=== PATIENT | female | born 1970 | race Caucasian/White ===

== ENCOUNTER 2018-01-21 20:26 | Inpatient (IN) | payer OTHER ==
[~2018-01-21] VITALS: Ht 172.7 cm; Wt 76.2 kg
[2018-01-21 20:34] VITALS: BP 177/105
--- NOTE | 2018-01-21 20:34 | NUR ---
PT JESUS ALBERTO TO ED BED 12. REPORT TO YURI VALENZUELA
--- NOTE | 2018-01-21 20:40 | NUR ---
PATIENT IS A 47 Y/O FEMALE WHO PRESENTS TO THE ED C/O ABD PAIN. PT REPORTS 8/10 ACHING LLQ ABD PAIN THAT DOES NOT RADIATE. PT DENIES CP, SOB, N/V/D. REPORTS TAKING MOTRIN WITH NO RELIEF. PT AWAKE AND ALERT, RR EVEN/UNLABORED. PT REPOSITIONED FOR COMFORT, BED IN LOWEST POSITION. BETTINA KU NOTIFIED. WILL CONTINUE TO MONITOR. Addendum: 01/21/18 at 2057 by [email or web address] PATIENT IS A 47 Y/O FEMALE WHO PRESENTS TO THE ED C/O ABD PAIN. PT REPORTS 8/10 ACHING LLQ ABD PAIN THAT DOES NOT RADIATE. PT DENIES CP, SOB, N/V/D. REPORTS TAKING MOTRIN WITH NO RELIEF. PT AWAKE, SLIGHTLY LETHARGIC, ABLE TO RESPOND TO COMMANDS, RR EVEN/UNLABORED. PT REPOSITIONED FOR COMFORT, BED IN LOWEST POSITION. ER MD DR. KU NOTIFIED. WILL CONTINUE TO MONITOR.
[2018-01-21] MEDS ORDERED: ACETAMINOPHEN EXTRA STRENGTH 500 MG TAB ONE (20:41)
[2018-01-21] MEDS ORDERED: ACETAMINOPHEN EXTRA STRENGTH 500 MG TAB PO ONE (20:45)
--- NOTE | 2018-01-21 21:05 | NUR ---
PATIENT UNABLE TO PROVIDE URINE AT THIS TIME. NO SIGNS OF DISTRESS.
--- NOTE | 2018-01-21 22:40 | NUR ---
EKG PERFORMED AT BEDSIDE, WITH PT COVERED IN GOWN
[2018-01-21 23:20] LABS: HEMATOCRIT 32.9 % (36-48); HEMOGLOBIN 10.8 g/dL (12.0-16.0); MEAN CORPUSCULAR HEMOGLOBIN 28 pg (27-31); MEAN CORPUSCULAR HGB CONC 33 g/dL (33-37); MEAN CORPUSCULAR VOLUME 84.7 fL (80-94); PLATELET COUNT (AUTO) 218 K/uL (140-450); RED BLOOD CELL COUNT(AUTO) 3.88 MIL/uL (4.20-5.40); RED CELL DISTRIBUTION WIDTH 14.9 % (11.6-13.7); WHITE BLOOD COUNT (AUTO) 19.4 K/uL (4.8-10.8)
[2018-01-21 23:28] LABS: APPEARANCE,URINE HAZY (CLEAR); BILIRUBIN,URINE NEGATIVE (NEGATIVE); BLOOD, URINE 1+ (NEGATIVE); COLOR,URINE YELLOW (YELLOW); LEUKOCYTE ESTERASE ,URINE 1+ (NEGATIVE); NITRITE, URINE NEGATIVE (NEGATIVE); PH,URINE 5.5 (5.0-9.0); UGLUCOSE NEGATIVE (NEGATIVE)
[2018-01-21] MEDS ORDERED: NACL 0.9% 2,000 ML IV ONE (23:35)
[2018-01-21] MEDS ORDERED: LEVOFLOXACIN 750 MG/D5W PREMIX 150 ML IV ONE (23:35)
[2018-01-21 23:36] LABS: BARBITURATE, URINE NEG. ng/ml (NEG <=200); BENZODIAZEPINE, URINE NEG. ng/mL (NEG <=200); CANNABINOID, URINE POS. ng/mL (NEG <=50); COCAINE, URINE NEG. ng/mL (NEG <=300); OPIATE, URINE NEG. ng/mL (NEG <=2000); PHENCYCLIDINE SCREEN,URINE NEG. ng/mL (NEG <=25)
[2018-01-21 23:36] LABS: ANION GAP 10.3 (8-16); CARBON DIOXIDE 27.7 mmol/L (21-32); CREATININE 0.9 mg/dL (0.6-1.3)
[2018-01-21 23:40] LABS: RBC,URINE 0-5 (RARE) /HPF (0-5); WBC,URINE TOO MANY TO COUNT /HPF (0-5)
[2018-01-21 23:42] LABS: TOTAL BILIRUBIN 0.4 mg/dL (0.0-1.0)
[2018-01-21 23:46] LABS: LYMPHOCYTES % (MANUAL) 8 % (20-46); MONOCYTES % (MANUAL) 2 % (5-12)
--- NOTE | 2018-01-22 00:10 | NUR ---
PATIENT RESTING AT THIS TIME. NO SIGNS OF DISTRESS.
[2018-01-22] MEDS ORDERED: NACL 0.9% 1,000 ML IV SCH (00:29)
[2018-01-22] MEDS ORDERED: ONDANSETRON 4 MG/2 ML VIAL IVP PRN (00:30)
[2018-01-22] MEDS ORDERED: MORPHINE SULFATE 4 MG/ML SYR IVP PRN (00:30)
[2018-01-22] MEDS ORDERED: DEXT 5% / NACL 0.9% 500 ML IV ONE (00:40)
--- NOTE | 2018-01-22 01:31 | NUR ---
Patient will be admitted to care of DR. CUI. Admited to TELE. Will go to room 106A. Belongings list completed. Report to RUTH ANN VALENZUELA.
[2018-01-22 01:45] VITALS: BP 139/72
--- NOTE | 2018-01-22 01:45 | NUR ---
RECEIVED PT FROM ER NURSE. PT ARRIVED VIA GURNEY, AMBULATORY WITH ASSISTANCE DUE TO GENERALIZED WEAKNESS. PT WAS ASSISTED TO USE THE TOILET BY NUCLEAR OPERATOR CAROLINE. PT DROWSY, LETHARGIC AND UNCOOPERATIVE. AOX2 DUE TO DROWSINESS/LETHARGY, ON ROOM AIR, WITH IV ON RIGHT AC #20G AND LEFT HAND #22G INFUSING ANTIBIOTICS LEVAQUIN FROM ER. MRSA NARES COLLECTED. VITAL SIGNS TAKEN AND TOLERATED WELL. DISCUSSED PLAN OF CARE HOWEVER PT DID NOT RESPOND AND IS ASLEEP. DIFFICULT TO AROUSE- BY SHAKING IF NO RESPONSE BY VOICE. NO S/S OF RESPIRATORY DISTRESS OR DISCOMFORT NOTED AT THIS TIME. BED IN LOWEST POSITION, BED BREAKS ON, BOTH SIDE RAILS UP AND BED ALARMS ON DUE TO FALL PRECAUTIONS. BED SIDE TABLE AND CALL LIGHT ARE WITHIN REACH. PT DID NOT VERBALIZE UNDERSTANDING MEDIA LIAISON OFFICER LIGHT, BED, OR ROOM ORIENTATION-PT CONTINUES TO SLEEP. WILL CONTINUE TO MONITOR.
--- NOTE | 2018-01-22 02:05 | NUR ---
IVF BAG HUNG AND TOLERATED WELL. ALL PT LABELS IN PLACE. NO S/S OF RESPIRATORY DISTRESS. ANTIBIOTICS LEVAQUIN STILL INFUSING. WILL CONTINUE TO MONITOR
[2018-01-22 04:00] VITALS: BP 146/79
--- NOTE | 2018-01-22 04:00 | NUR ---
VITAL SIGNS TAKEN AND TOLERATED WELL. NO S/S OF RESPIRATORY DISTRESS OR DISCOMFORT NOTED AT THIS TIME. OPEN WOUND NOTED ON RIGHT ANKLE- WILL TAKE PICTURE AND DOCUMENT. WILL CONTINUE TO MONITOR.
--- NOTE | 2018-01-22 06:00 | NUR ---
PT SLEEPING IN BED. NO S/S OF RESPIRATORY DISTRESS OR DISCOMFORT NOTED AT THIS TIME. WILL CONTINUE TO MONITOR.
--- NOTE | 2018-01-22 07:24 | NUR ---
ENDORSED PT CARE TO DAY SHIFT NURSE FARNAZ-RN FOR CONTINUITY OF CARE.
--- NOTE | 2018-01-22 07:26 | NUR ---
RECEIVED REPORT FROM PRESSER MACHINE NURSE. PT SLEEPING COMFORTABLY IN BED. RESPIRATIONS EVEN & UNLABORED. SAFETY MEASURES IN PLACE. WILL CONTINUE TO MONITOR.
[2018-01-22 08:00] VITALS: BP 155/96
[2018-01-22] MEDS ORDERED: ENOXAPARIN 40 MG/0.4 ML SYR SUBQ SCH (09:00)
[2018-01-22] MEDS: ENOXAPARIN 40 MG/0.4 ML SYR SUBQ SCH (09:55)
--- NOTE | 2018-01-22 10:00 | NUR ---
PT SLEEPING SOUNDLY IN BED. AROUSABLE BY VOICE. NO SIGNS OF DISTRESS. DENIES ANY PAIN OR DISCOMFORT. RESPIRATIONS EVEN & UNLABORED. BED ALARM ACTIVATED. CALL LIGHT WITHIN REACH. WILL CONTINUE TO MONITOR.
--- NOTE | 2018-01-22 11:40 | NUR ---
ASSISTED PT TO THE TOILET. PT ABLE TO AMBULATE WITH UNSTEADY GAIT, STAND-BY ASSIST PROVIDED. VOIDED X1. ASSISTED BACK TO BED. SAFETY MEASURES IN PLACE. WILL CONTINUE TO MONITOR.
[2018-01-22 12:00] VITALS: BP 157/89
--- NOTE | 2018-01-22 13:15 | NUR ---
PT SLEEPING IN BED, AROUSABLE BY VOICE. VERBALLY RESPONSIVE, DENIES ANY PAIN OR DISCOMFORT. NO SIGNS OF DISTRESS. RESPIRATIONS EVEN & UNLABORED. CALL LIGHT WITHIN REACH. BED ALARM ACTIVATED. WILL CONTINUE TO MONITOR.
[2018-01-22 16:00] VITALS: BP 129/83
--- NOTE | 2018-01-22 16:23 | NUR ---
SMOKE CESSATION EDUCATION ATTEMPTED, PT REFUSES, HANDOUT GIVEN TO PATIENT. WILL TRY AT LATER TIME.
[2018-01-22] MEDS ORDERED: POTASSIUM CHLORIDE 10 MEQ TABER PO SCH (17:00)
--- NOTE | 2018-01-22 17:47 | NUR ---
PT SITTING UP IN BED, EATING FRUIT CUP, NO SIGNS OF DISTRESS, DENIES ANY PAIN OR DISCOMFORT. FALL RISK INTERVENTIONS IN PLACE. WILL CONTINUE TO MONITOR.
--- NOTE | 2018-01-22 19:10 | NUR ---
REPORT GIVEN TO TRAFFIC TECHNICIAN NURSE FOR CONTINUITY OF CARE. PT STABLE AT THIS TIME.
--- NOTE | 2018-01-22 19:11 | NUR ---
RECEIVED REPORT FROM DAY SHIFT NURSE FARNAZ-ER AT BEDSIDE. AOX4- DROWSY, ON ROOM AIR, WITH IV ON LEFT HAND #22G-SL. DISCUSSED PLAN OF CARE HOWEVER PT DID NOT RESPOND AND IS ASLEEP. DIFFICULT TO AROUSE- BY SHAKING IF NO RESPONSE BY VOICE. NO S/S OF RESPIRATORY DISTRESS OR DISCOMFORT NOTED AT THIS TIME. BED IN LOWEST POSITION, BED BREAKS ON, BOTH SIDE RAILS UP AND BED ALARMS ON DUE TO FALL PRECAUTIONS. BED SIDE TABLE AND CALL LIGHT ARE WITHIN REACH. WILL CONTINUE TO MONITOR.
[2018-01-22 20:00] VITALS: BP 141/91
--- NOTE | 2018-01-22 20:00 | NUR ---
VITAL SIGNS TAKEN AND TOLERATED WELL. NO S/S OF RESPIRATORY DISTRESS OR DISCOMFORT NOTED AT THIS TIME. WILL CONTINUE TO MONITOR.
[2018-01-22] MEDS ORDERED: LEVOFLOXACIN 750 MG/D5W PREMIX 150 ML IV SCH (21:00)
--- NOTE | 2018-01-22 21:10 | NUR ---
SCHEDULED MEDICATION LEVAQUIN GIVEN AND TOLERATED WELL. NO S/S OF RESPIRATORY DISTRESS OR DISCOMFORT NOTED AT THIS TIME. WILL CONTINUE TO MONITOR.
--- NOTE | 2018-01-22 22:00 | NUR ---
PT CONTINUES TO SLEEP. NO S/S OF RESPIRATORY DISTRESS OR DISCOMFORT NOTED AT THIS TIME. WILL CONTINUE TO MONITOR.
[2018-01-23] VITALS: BP 133/83
--- NOTE | 2018-01-23 | NUR ---
VITAL SIGNS TAKEN AND TOLERATED WELL. NO S/S OF RESPIRATORY DISTRESS OR DISCOMFORT NOTED AT THIS TIME. WILL CONTINUE TO MONITOR.
--- NOTE | 2018-01-23 02:00 | NUR ---
PT CONTINUES TO SLEEP. NO S/S OF RESPIRATORY DISTRESS OR DISCOMFORT NOTED AT THIS TIME. WILL CONTINUE TO MONITOR.
[2018-01-23 04:00] VITALS: BP 100/64
--- NOTE | 2018-01-23 04:00 | NUR ---
VITAL SIGNS TAKEN AND TOLERATED WELL. NO S/S OF RESPIRATORY DISTRESS OR DISCOMFORT NOTED AT THIS TIME. WILL CONTINUE TO MONITOR.
--- NOTE | 2018-01-23 06:00 | NUR ---
PT SLEEPING IN BED. NO S/S OF RESPIRATORY DISTRESS OR DISCOMFORT NOTED AT THIS TIME. WILL CONTINUE TO MONITOR.
--- NOTE | 2018-01-23 07:13 | NUR ---
ENDORSED PT CARE TO DAY SHIFT NURSE ADRIAN FOR CONTINUITY OF CARE.
--- NOTE | 2018-01-23 07:14 | NUR ---
RECEIVED REPORT FROM THE CARE COMPANION NURSE AT BEDSIDE FOR CONTINUITY OF CARE. PT IS SLEEPING. PER CARE COMPANION, SHE'S BEEN LETHARGIC SINCE SHE GOT HERE. UPDATED THE BOARD. PT IS AMBULATORY. SKIN, THERE ARE MULTIPLE SCABS OF BLE. IV ON L HAND 20G SL. SLEEPING SOUNDLY. V/S WITHIN NORMAL LIMITS. RESP IS 24. WILL CONTINUE TO MONITOR PT.
[2018-01-23 07:46] LABS: BASOPHILS % (AUTO) 0.4 % (0.0-2.0); EOSINOPHILS # (AUTO) 0.1 K/uL (0-0.4); EOSINOPHILS % (AUTO) 0.5 % (0.0-4.0); HEMATOCRIT 34.6 % (36-48); HEMOGLOBIN 11.3 g/dL (12.0-16.0); LYMPHOCYTES # (AUTO) 1.9 K/uL (2.5-16.5); LYMPHOCYTES % (AUTO) 16.1 % (20.5-51.1); MEAN CORPUSCULAR HEMOGLOBIN 28 pg (27-31); MEAN CORPUSCULAR HGB CONC 33 g/dL (33-37); MEAN CORPUSCULAR VOLUME 84.8 fL (80-94); MONOCYTES # (AUTO) 0.6 K/uL (0.8-1.0); MONOCYTES % (AUTO) 5.6 % (1.7-9.3); NEUTROPHILS # (AUTO) 8.9 K/uL (1.8-7.7); NEUTROPHILS % (AUTO) 77.4 % (42.2-75.2); PLATELET COUNT (AUTO) 220 K/uL (140-450); RED BLOOD CELL COUNT(AUTO) 4.08 MIL/uL (4.20-5.40); RED CELL DISTRIBUTION WIDTH 15.2 % (11.6-13.7); WHITE BLOOD COUNT (AUTO) 11.5 K/uL (4.8-10.8)
[2018-01-23 08:00] VITALS: BP 126/75
[2018-01-23 08:37] LABS: ALBUMIN 2.4 g/dL (3.4-5.0); ANION GAP 10.6 (8-16); CARBON DIOXIDE 27.2 mmol/L (21-32); CREATININE 0.8 mg/dL (0.6-1.3); POTASSIUM 3.8 mmol/L (3.5-5.1); TOTAL BILIRUBIN 0.2 mg/dL (0.0-1.0)
[2018-01-23] MEDS: ENOXAPARIN 40 MG/0.4 ML SYR SUBQ SCH (08:55)
--- NOTE | 2018-01-23 08:57 | NUR ---
WOKE UP PT AND ADMINISTERED SCHEDULED MED. PT IS ALERT AND ORIENTED. STATED SHE HAD A FALL ABOUT A WEEK AGO, TRIPPED OVER A CONCRETE BLOCK. SHE HAS 2 OPEN ABRASIONS ON R FOOT AND ANKLE AND 1 ALMOST SCABBED OVER ABRASION ON THE L KNEE AND MULTIPLE DRY SCABS, NETWORK SYSTEMS OPERATOR. WOUND CARE NURSE IS ASSESSING PT.
--- NOTE | 2018-01-23 09:13 | NUR ---
PATIENT HAS BEEN SCREENED AND CATEGORIZED HIGH NUTRITION RISK. PATIENT WILL BE SEEN WITHIN 1-2 DAYS OF ADMISSION. 01/23/[address]
--- NOTE | 2018-01-23 11:18 | NUR ---
PT SLEEPING SOUNDLY. NO SIGNS OF DISTRESS. WILL CONTINUE TO MONITOR PT.
--- NOTE | 2018-01-23 11:48 | NUR ---
REASON FOR EVALUATION: BLE WOUNDS SKIN ASSESSMENT DONE WITH THIS 47 Y/O MALE PT ADMITTED FROM HOME TO [facility] WITH INITIAL DX FACIAL PAIN WITH FEVER AND WEAKNESS. NO SIGNIFICANT PAST MEDICAL. ALL ABOVE INFORMATION OBTAINED FROM ADMISSION H&P AND PT. PT. SKIN IS WARM AND DRY, BLE NO HAIR GROWTH, NO EDEMA. DORSAL PEDAL PULSES PRESENT AND NORMAL.PT. PLAN OF CARE DISCUSSED WITH PRIMARY RN. INTEGUMENTARY: -MULTIPLE SKIN LESIONS TO RLE WITH UNKNOWN ETIOLOGY, LARGEST MEASUREMENT ON RIGHT LOWER CANO 3X4 CM. WOUND BEDS ARE PINK, DRY, NO ODOR, JENI-WOUNDS ARE FLAT, ROUND SHAPE WOUND EDGES. -RIGHT LATERAL ANKLE 0.5X0.5X0.1 CM PARTIAL THICKNESS SKIN LOSS, DRY, NO ODOR. -LEFT KNEE 1X1.5 CM SOFT LIGHT BROWN SCAB, PERIWOUND INTACT AND PINK. RECOMMENDATIONS: -KEEP SKIN DRY AND CLEAN AT ALL TIMES. -CLEANSE MULTIPLE SKIN ALTERATIONS RLE WITH NS. PAT DRY, APPLY SILVASORB GEL AND COVER WITH DRY DRESSING QD AND PRN IF SOILING. PAINT LEFT KNEE SOFT SCAB WITH BETADINE SOLUTION, BIDWC AND LEAVE IT TO AIR DRY. ALL ABOVE RECOMMENDATIONS DISCUSSED WITH PRIMARY RN. WILL FOLLOW UP PT Q7-10 DAYS. PLEASE CONTACT WOUND CARE NURSE FOR ANY QUESTION AND CHANGE OF WOUND CONDITION.
[2018-01-23 12:00] VITALS: BP 97/62
[2018-01-23] MEDS ORDERED: NACL 0.9% IRR 250 ML BOTTLE IR PRN (12:00)
--- NOTE | 2018-01-23 12:04 | NUR ---
CM NOTE INITIAL REVIEW FAXED TO [facility] [phone] ALISHA # [phone]
--- NOTE | 2018-01-23 12:20 | NUR ---
PT ACCIDENTALLY PULLED OUT HER IV. CANNULA INTACT. BLEEDING. CLEANED HER UP AND CHANGED GOWN AND LINENS. NO IV ACCESS AT THIS TIME. NO IVF OR IV MEDS ORDERED. WILL START ANOTHER WHEN PT NEEDS IT. WILL CONTINUE TO MONITOR PT.
[2018-01-23] MEDS ORDERED: LEVO500T2 PO (13:50)
--- NOTE | 2018-01-23 14:05 | NUR ---
PT MARQUITA. CHANGED HER CLOTHES. REMOVED THE TELEMONITOR. GRABBED HER BELONGINGS AND LEFT WITHOUT TELLING ANYONE. DIRECTOR SAW HER GET DRESSED. ANOTHER RN SAW HER WALK OUT. I WAS AT [place]. WHEN TELEMONITOR TECH TOLD ANOTHER NURSE TO CHANGE THE LEADS BC SHE WAS OFF, THAT WAS WHEN WE DISCOVERED SHE WAS GONE. RAN OUT AFTER HER, SHE WAS ALREADY WALKING ACROSS THE PARKING LOT.
== END 2018-01-23 12:05 | disposition left against medical advice (07) | DRG 720 ==
LOC: MED 20:26 → UNDOADMOB 01-22 00:29 → MTU 01-22 00:29 → INTOOBSV 01-22 02:15 → OBSVTOIN 01-22 02:15 → UNDODISIN 01-23 12:05
PROVIDERS: ADMIT Internal Medicine; ATTEND Internal Medicine
DX: A41.9 Sepsis, unspecified organism (principal); E44.0 Moderate protein-calorie malnutrition; N39.0 Urinary tract infection, site not specified; Z88.0 Allergy status to penicillin; F19.10 Other psychoactive substance abuse, uncomplicated; Z68.25 Body mass index [BMI] 25.0-25.9, adult; B96.20 Unspecified Escherichia coli [E. coli] as the cause of diseases classified elsewhere; F17.210 Nicotine dependence, cigarettes, uncomplicated; F12.10 Cannabis abuse, uncomplicated; N13.2 Hydronephrosis with renal and ureteral calculous obstruction
CPT/HCPCS: 96365; 99285; G0378; 36415; 71045; 80053; 80305; 81001; 81025; 83605; 85025; 87040; 87081; 87086; 87186; 93005; J1650; J1956; J7042; Q0092